=== PATIENT | male | born 1970 | race Caucasian/White ===

== ENCOUNTER → 2021-01-19 | Outpatient (CLI) | payer OTHER ==
[~2021-01-19] MED LIST: ACET325
== END | disposition home or self-care (01) ==
LOC: LAB SHORT 07:53
DX: L82.1 Other seborrheic keratosis (principal)
CPT/HCPCS: 88305

== ENCOUNTER 2022-12-14 19:31 | Emergency (ER) | payer OTHER ==
[~2022-12-14] VITALS: Ht 198.1 cm; Wt 108.9 kg
[~2022-12-14 19:31] MED LIST changes: +CONDYLOX
[2022-12-14 20:22] VITALS: BP 134/103
== END 2022-12-14 22:23 | disposition home or self-care (01) ==
LOC: ER 19:31
DX: R51.9 Headache, unspecified (principal)
CPT/HCPCS: 70450; 85651; 99284-25